=== PATIENT | male | born 1985 | race Two or more races ===

== ENCOUNTER 2023-01-26 00:12 | Emergency (ER) | payer SELFPAY ==
[2023-01-26] MEDS: KETOROLAC 15 MG/ML VIAL IVP STA (01:17)
[2023-01-26] MEDS: METOCLOPRAMIDE 10 MG/2 ML VIAL IVP STA (01:17)
[2023-01-26] MEDS: SODIUM CHLORIDE 0.9% 1,000 ML IV STA (01:17)
--- NOTE | 2023-01-26 01:59 | ED Physician Documentation ---
PD HPI HEADACHE - Stated complaint Stated Complaint: HEAD AND EAR PX - Chief complaint Chief Complaint: Neuro - History obtained from History obtained from: Patient - Additional information Additional information: 29-year-old male with no reported past medical history presents for posterior head pain and right ear pain since 3 PM. Pain is a pressure, throbbing sensation, worse with position. Patient states that he never gets headaches and this is very atypical for him. No medications taken prior to arrival. Had a similar pain 6 days ago that resolved on its own, however when this pain persis herminia he decided to present for evaluation. Review of Systems Constitutional: denies: Fever, Chills Ears: reports: Ear pain. denies: Loss of hearing, Drainage/discharge Musculoskeletal: denies: Neck pain, Back pain, Extremity pain Neurologic: reports: Headache. denies: Generalized weakness, Focal weakness, Numbness, Difficulty speaking, Near syncope, Head injury PD PAST MEDICAL HISTORY - Allergies Allergies/Adverse Reactions: Allergies Allergy/AdvReac Type Severity Reaction Status Date / Time No Known Drug Allergies Allergy Verified 01/26/23 00:16 PD ED PE NORMAL - Vitals Vital signs reviewed: Yes - General General: Alert and oriented X 3, No acute distress, Well developed/nourished - HEENT HEENT: Atraumatic, PERRL, EOMI, Ears normal, Other (TM normal bilaterally) - Neck Neck: Supple, no meningeal sign, No bony TTP - Cardiac Cardiac: RRR, Strong equal pulses - Respiratory Respiratory: No respiratory distress, Clear bilaterally - Abdomen Abdomen: Soft, Non tender, Non distended - Derm Derm: Normal color, Warm and dry, No rash - Extremities Extremities: No deformity, No tenderness to palpate, Normal ROM s pain, No edema - Neuro Neuro: Alert and oriented X 3, assistant at surgery 2-12 intact, No motor deficit, Normal speech - Psych Psych: Normal mood, Normal affect Results - Vitals Vitals: Vital Signs - 24 hr 01/26/23 01/26/23 01/26/23 00:17 00:19 02:19 Temperature 36.5 C Heart Rate 70 71 Respiratory 16 18 Rate Blood Pressure 152/86 H 107/65 O2 Saturation 96 18 L 96 01/26/23 02:55 Temperature Heart Rate 85 Respiratory 16 Rate Blood Pressure 128/63 O2 Saturation 100 Oxygen O2 Source Room air PD Medical Decision Making - ED course Complexity details: reviewed results, re-evaluated patient, considered differential, d/w patient ED course: Well-appearing patient with new onset headache. Neurologically intact. Ears are normal bilaterally, no explanation for the reported ear pain. Since this is a new type of headache for the patient will order CT brain. Headache cocktail ordered. Headache improved with medications, patient sleeping soundly in ER bed. CT negative for acute findings. Patient given supportive care instructions for headache and PCP follow-up was advised. Departure - Departure Disposition: 01 Home, Self Care Clinical Impression: Headache Qualifiers: Headache type: other headache syndrome Qualified Code(s): G44.89 - Other headache syndrome Condition: Stable Instructions: ED Headache Tension Comments: You were seen today for headache. Your head CT is normal. At home make sure to drink plenty of fluids and take Tylenol and Motrin as needed for pain. Please follow-up with a primary care physician Forms: PCP List Discharge Date/Time: 01/26/23 02:55
--- NOTE | 2023-01-26 02:18 | CT Report ---
PROCEDURE: HEAD WO INDICATIONS: POSTERIOR HEADACHE/NEW PATTERN TECHNIQUE: Noncontrast 4.5 mm thick angled axial sections acquired from the foramen magnum to the vertex. For r adiation dose reduction, the following was used: automated exposure control, adjustment of mA and/or kV according to patient size. COMPARISON: None. FINDINGS: Image quality: Excellent. CSF spaces: Basal cisterns are patent. No extra-axial fluid collections. Ventricles are normal in size and shape. Brain: No midline shift. No intracranial masses or hemorrhage. Gastelum-white matter interface is norm al. Skull and face: Calvarium and visualized facial bones are intact, without suspicious lesions. Sinuses: Visualized sinuses and mastoids are clear. IMPRESSION: No acute intracranial pathology. Reviewed by: Royce Huggins MD on 01/26/2023 2:17 AM PDT Approved by: Royce Huggins MD on 01/26/2023 2:17 AM PDT Station ID: [id number]
[2023-01-26 03:01] VITALS: BP 128/63; O2SAT 100
== END 2023-01-26 02:55 | disposition home or self-care (01) ==
LOC: ED 00:12
DX: G44.89 Other headache syndrome (principal)
CPT/HCPCS: 96374; 99283